=== PATIENT | female | born 1975 | race Caucasian/White ===

== ENCOUNTER 2022-02-06 10:43 | Emergency (ER) | payer MEDICAID ==
[~2022-02-06] VITALS: Ht 167.6 cm; Wt 67.0 kg
[2022-02-06 10:51] VITALS: BP 131/81
[2022-02-06] MEDS ORDERED: PREDNISONE 20MG TABLET PO ONE (12:15)
[2022-02-06] MEDS ORDERED: ALBUTEROL (0.083%) 2.5MG/3ML NEB HHN ONE (12:15)
[2022-02-06] MEDS ORDERED: ACETAMINOPHEN 325MG TABLET PO ONE (12:15)
[2022-02-06] MEDS ORDERED: ACET-2708 MT (13:47)
[2022-02-06] MEDS ORDERED: P50 MT (13:47)
[2022-02-06] MEDS ORDERED: ALBU18HF2 IH (13:47)
[2022-02-06] MEDS ORDERED: GUAI-453 MT (13:47)
== END 2022-02-06 14:13 | disposition home or self-care (01) ==
LOC: ER 10:43
DX: U07.1 COVID-19 (principal); R03.0 Elevated blood-pressure reading, without diagnosis of hypertension; J45.909 Unspecified asthma, uncomplicated; Z79.51 Long term (current) use of inhaled steroids
CPT/HCPCS: 71045; 87426; 93005; 99285; C9803; J7512; Z7610